=== PATIENT | female | born 1945 | race Caucasian/White ===

== ENCOUNTER 2016-12-06 11:07 | Emergency (ER) | payer OTHER ==
[~2016-12-06] VITALS: Ht 147.3 cm; Wt 85.7 kg
--- NOTE | 2016-12-06 11:48 | ED INFLUENZA/URI COMPLAINT ---
History of Present Illness General Chief Complaint: Upper Respiratory Sx/Fever Stated Complaint: URI Source: patient, family (DAUGHTER) Exam Limitations: no limitations Vital Signs & Intake/Output Vital Signs & Intake/Output Vital Signs Date Time Temp Pulse Resp B/P Pulse O2 O2 Flow FiO2 Ox Delivery Rate 12/06 1438 97.4 67 131/86 97 Room Air 12/06 1243 61 20 128/78 94 Room Air 12/06 1212 99 12/06 1148 93 Room Air 12/06 1128 97.2 65 28 117/79 92 Room Air Allergies Coded Allergies: Penicillins (Intermediate, HIVES 12/06/16) Reconcile Medications Azithromycin (Zithromax) 250 MG TABLET 1 DP PO AD bronchitis 2 the first day followed by 1 for days 2-5 Methylprednisolone. (Medrol) 4 MG TAB.DS.PK 1 DP PO AD bronchitis 6 on day 1 then reduce by one tablet daily until gone Triage Note: C/O SORE THROAT, CONGESTED COUGH X 4 DAYS. (PRODUCTIVE YELLOW SPUTUM). DENIES FEVER, WEAKNESS OR CHANGE OF APPETITE. PMH: CHF. Triage Nurses Notes Reviewed? yes Onset: Gradual Duration: day(s): (4), constant Timing: single episode today Severity: mild Severity Numbers: 4 Prior Episodes/Possible Cause: occassional episodes No Modifying Factors: none Associated Symptoms: cough, muscle aches, nasal congestion, nasal drainage HPI: This is a 71-year-old female with history of CHF, hypertension high cholesterol who presents with her daughter for evaluation complaining of a four-day history of a nonproductive cough, associated rhinorrhea and congestion. The patient's daughter reports multiple sick contacts at home with similar symptoms. She did not receive a flu vaccination this year. She quit smoking a partially 30 years ago, no history of asthma or COPD. She denies any shortness of breath chest pain leg swelling fever chills nausea vomiting or diarrhea. She has been using [id number] decongestions without improvement. There are no other modifying factors or associated symptoms otherwise. There is no sputum production no hemoptysis. Her daughter states the symptoms have improved since they had initially begun however given her history was CHF she wanted to ensure that she did not have pneumonia today. (BRAD SILVA,ADIEL) Past History Travel History Traveled to [place] past 21 day No Medical History Any Pertinent Medical History? see below for history Cardiovascular: CHF, hypertension Musculoskeletal: osteoarthritis Cancer(s): NONE Surgical History Surgical History: non-contributory Psychosocial History What is your primary language Upper Sorbian Tobacco Use: Quit >30 days ago ETOH Use: denies use Family History Hx Contributory? No (ADIEL VEE) Review of Systems Review of Systems Constitutional: Reports: see HPI. All Other Systems: Reviewed and Negative Comments Review of systems: See HPI, All other systems negative. Constitutional, no chills no fever, no malaise no weight loss HEENT: no sore throat congestion, no ear pain Cardiovascular: No chest pain , no palpitation , no orthopnea no ankle swelling Skin, no jaundice no rashes, no change in skin Respiratory: No dyspnea cough no sputum no hemoptysis GI: No nausea no vomiting, no diarrhea, no bloating/constipation : No dysuria Muscle skeletal: No joint pain, no joint swelling, no back pain Neurologic: No numbness no headache Psych: No stress Heme/endocrine: No bruising no bleeding Immunology: No lymphadenopathy (ADIEL VEE) Physical Exam Physical Exam General Appearance: well developed/nourished, alert, awake Ears, Nose, Throat: normal ENT inspection Comments: Well-developed well-nourished person in no acute distress Head/Face: Atraumatic, no maxillary/frontal sinus tenderness, no facial swelling Eyes: PERRL, EOMI, no conjunctival injection Ear:External auditory canal and Tympanic membranes clear Nose: atraumatic.Normal inspection: No bleeding, no septal hematoma Throat: Moist mucous membranes.Pharynx normal. No pharyngeal erythema/exudate seen. No stridor/drooling or assymetry. No swelling or edema. Neck: Supple, no lymphadenopathy, FROM Back: Nontender, no CVA tenderness. Full range of motion Cardiovascular: Regular rate and rhythms no murmurs rubs or gallops, normal JVP Respiratory: Chest nontender.There were no bony deformities, no asymmetry. No respiratory distress. Patient speaking in full complete sentences. Breath sounds clear to auscultation bilaterally: NO W/R/R Abdomen: Soft, nontender nondistended, no appreciable organomegaly. Normal bowel sounds. No rebound/guarding, No ascites. Extremity: No edema, full range of motion of extremities, normal and equal pulses bilaterally, 5 out of 5 strength noted to bilateral upper and lower extremities Neuro: Alert oriented x3, motor sensory normal, There were no obvious focal neurologic abnormalities. Skin: No appreciable rash on exposed skin, skin is warm and dry. Psych: Mood and affect is normal, memory and judgment is normal. Core Measures Severe Sepsis Present: No Septic Shock Present: No (BRAD SILVA,ADIEL) Progress Differential Diagnosis: influenza, otitis, pneumonia, pharyngitis, sinusitis, BRONCHITIS,COPD, CHF EXACERBATION Plan of Care: Orders Procedure Date/time Status Regular Diet 12/06 D Active BLOOD CULTURE 12/06 124 Active COMPREHENSIVE METABOLIC PANEL 12/06 1246 Complete CBC WITHOUT DIFFERENTIAL 12/06 124 Complete RAPID VIRAL INFLUENZA A 12/06 1143 Complete Laboratory Tests 12/06/16 1300: Anion Gap 15, Estimated GFR > 60, BUN/Creatinine Ratio 27.1 H, Glucose 147 H, Calcium 9.3, Total Bilirubin 0.8, AST 27, ALT 23, Alkaline Phosphatase 59, Total Protein 7.8, Albumin 4.4, Globulin 3.4, Albumin/Globulin Ratio 1.3, CBC w Diff NO MAN DIFF REQ, RBC 5.31, MCV 86.8, MCH 28.6, RDW 13.8, MPV 7.8, Gran % 74.5, Lymphocytes % 14.9 L, Monocytes % 9.8 H, Eosinophils % 0.4, Basophils % 0.4, Absolute Granulocytes 7.1 H, Absolute Lymphocytes 1.4, Absolute Monocytes 0.9 H, Absolute Eosinophils 0, Absolute Basophils 0, PUBS MCHC 33.0 Microbiology 12/06 1305 BLOOD: Blood Culture - RECD 12/06 1300 BLOOD: Blood Culture - RECD 12/06 1145 NASOPHARYN: Influenza Virus A & B Rapid Smear - COMP Patient speaking in full complete sentences labs ordered old records reviewed, case discussed with Dr. Diaz 12/06/2016 1:01:17 PM discussed with the patient and her daughter at length all her x-ray results. Need for CAT scan and labs ordered which in agreement with- AZITHRO 500mg IV, Solu-Medrol 125mg IV ordered 12/06/2016 2:06:32 PM I discussed with the patient and her daughter her CT findings,, they will follow up with her primary care physician Dr. Whitaker on this week prescription for azithromycin and prednisone provided patient is not hypoxic resting comfortably they feel comfortable with discharge answered all her questions cleared for discharge (BRAD SILVA,ADIEL) Diagnostic Imaging: Viewed by Me: Radiology Read. Discussed w/RAD: Radiology Read. Radiology Impression: PATIENT: CHINO MCCORD PRESENT AGE: 71 PATIENT ACCOUNT NO: [id number] : 43 LOCATION: [facility], [place] ORDERING PHYSICIAN: ADIEL SILVA SERVICE DATE: 12/06/161143 EXAM TYPE: RAD - XRY-CHEST XRAY, PA AND LATERAL EXAMINATION: XR CHEST CLINICAL INFORMATION: Cough. Evaluate for pneumonia. COMPARISON: None TECHNIQUE: Frontal and lateral views of the chest. FINDINGS: The cardiomediastinal silhouette is enlarged. Ectasia and tortuosity of the ascending and descending aorta is seen. Calcification of the aortic arch is noted. Lungs bilaterally are symmetrically mildly hyperinflated with flattening of the hemidiaphragms and increase in AP diameter of the chest, suggesting obstructive lung disease. There is fullness of the right pulmonary hilum with ill-defined opacities seen extending along the medial right heart border into the right lower lung. Findings may be related to a hilar mass with postobstructive changes in the right lower lung or subtle pneumonia with reactive adenopathy in the right hilum. The patient is slightly rotated on the film and the right hilar fullness may be artifactually accentuated by this patient positioning. No effusion or pneumothorax is seen. Osteopenia with multilevel mild vertebral spondylosis in the mid and lower thoracic spine are noted. IMPRESSION: 1. Suspect right hilar adenopathy with associated postobstructive changes in the medial right lung base versus subtle pneumonia. Consider further assess with CT scan of the chest. 2. Findings of obstructive lung disease. 3. Ectatic and tortuous aorta. DICTATED BY: EMEKA VALE MD DATE/TIME DICTATED:12/06/161224 MAGNETIC RESONANCE TECHNOLOGIST:ADARSH DATE/ TIME TRANSCRIBED:12/06/161224 CONFIDENTIAL, DO NOT COPY WITHOUT APPROPRIATE AUTHORIZATION. <Electronically signed in Other Vendor System> SIGNED BY: EMEKA VALE MD 12/06/16 1235, PATIENT: CHINO MCCORD PRESENT AGE: 71 PATIENT ACCOUNT NO: [id number] : 43 LOCATION: [facility], [place] ORDERING PHYSICIAN: ADIEL SILVA SERVICE DATE: 12/06/16-1246 EXAM TYPE: CAT - CT CHEST WO IV CONTRAST EXAMINATION: CT CHEST WITHOUT CONTRAST CLINICAL INFORMATION: Dyspnea and cough. COMPARISON: Chest 12/06/2016. TECHNIQUE: Multidetector volumetric CT imaging of the chest was done. Axial MIP volume rendering provided. Sagittal and coronal reformatted images were obtained. DLP: 562 mGy-cm FINDINGS: LUNGS: Both lungs are well-expanded angulated acute pneumonic process. Especially there is no consolidation in the right middle lobe except for minimal medial segment. There are no pulmonary nodules or mass seen. MEDIASTINUM: The heart size is mildly enlarged with coronary artery calcification. There is moderate ectasia of ascending aorta simulating right hilar lesion. Otherwise the great vessels are normal caliber. There is mild ectasia of distal thoracoabdominal aorta as well.. Central trachea and the bronchi widely patent. The thyroid lobes a slightly enlarged with symmetrical. No abnormal size mediastinal or hilar lymphadenopathy seen. There is no right hilar mass seen. Abnormality seen on chest x-ray is most likely is a normal right hilum PLEURA: There is no pleural effusion. No pleural mass or thickening. AXILLA: Bilateral axilla and the chest wall appears unremarkable. UPPER ABDOMEN: Visualized liver, spleen, pancreas and bilateral adrenal glands are unremarkable. OSSEOUS STRUCTURES: There are degenerative disc changes T9-T10 disc level with moderate spondylosis. There is mild spondylosis seen throughout the mid and lower dorsal spine as well. IMPRESSION: There is no evidence of right hilar or parahilar consolidation. Minimal atelectatic changes are seen in the medial segment right middle lobe. An ascending and distal descending thoracic aorta is noted. No aneurysmal dilatation seen. DICTATED BY: RELL HUBER MD DATE/TIME DICTATED:12/06/161343 MAGNETIC RESONANCE TECHNOLOGIST:ADARSH DATE/TIME TRANSCRIBED:12/06/161343 CONFIDENTIAL, DO NOT COPY WITHOUT APPROPRIATE AUTHORIZATION. <Electronically signed in Other Vendor System> SIGNED BY: RELL HUBER MD 12/06/16 1402 Initial ED EKG: none (BRAD SILVA,ADIEL) Departure Departure Disposition: HOME OR SELF CARE Condition: Stable Clinical Impression Primary Impression: Bronchitis Referrals: YOSSI MARIA MD (PCP/Family) Additional Instructions: FOLLOW UP WITH YOUR PMD DR MARIA TOMORROW. MEDROL DOSE SONDRA AND AZITHROMYCIN DIRECTED. RETURN AT ANYTIME SOONER IF YOUR SYMPTOMS WORSEN OR YOU HAVE ANY OTHER CONCERN These prescriptions were sent to your pharmacy Departure Forms: Customer Survey General Discharge Information Prescriptions: Current Visit Scripts Methylprednisolone. (Medrol) 1 DP PO AD #1 DP 6 on day 1 then reduce by one tablet daily until gone Azithromycin (Zithromax) 1 DP PO AD #6 TAB 2 the first day followed by 1 for days 2-5 (BRAD SILVA,ADIEL) PA/HOGSHEAD BUILDER Co-Sign Statement Statement: ED Attending supervision documentation- [X] I saw and evaluated the patient. I have also reviewed all the pertinent lab results and diagnostic results. I agree with the findings and the plan of care as documented in the PA's/HOGSHEAD BUILDER's documentation. [X] I have reviewed the ED Record and agree with the PA's/HOGSHEAD BUILDER's documentation. [] Additions or exceptions (if any) to the PAs/HOGSHEAD BUILDER's note and plan are summarized below: [] (MILLICENT GAUTHIER,JACK Foster)
--- NOTE | 2016-12-06 12:35 | RADIOLOGY REPORT ---
EXAMINATION: XR CHEST CLINICAL INFORMATION: Cough. Evaluate for pneumonia. COMPARISON: None TECHNIQUE: Frontal and lateral views of the chest. FINDINGS: The cardiomediastinal silhouette is enlarged. Ectasia and tortuosity of the ascending and descending aorta is seen. Calcification of the aortic arch is noted. Lungs bilaterally are symmetrically mildly hyperinflated with flattening of the hemidiaphragms and increase in AP diameter of the chest, suggesting obstructive lung disease. There is fullness of the right pulmonary hilum with ill-defined opacities seen extending along the medial right heart border into the right lower lung. Findings may be related to a hilar mass with postobstructive changes in the right lower lung or subtle pneumonia with reactive adenopathy in the right hilum. The patient is slightly rotated on the film and the right hilar fullness may be artifactually accentuated by this patient positioning. No effusion or pneumothorax is seen. Osteopenia with multilevel mild vertebral spondylosis in the mid and lower thoracic spine are noted. IMPRESSION: 1. Suspect right hilar adenopathy with associated postobstructive changes in the medial right lung base versus subtle pneumonia. Consider further assess with CT scan of the chest. 2. Findings of obstructive lung disease. 3. Ectatic and tortuous aorta.
[2016-12-06 13:20] LABS: ABSOLUTE BASOPHIL COUNT 0 /CUMM (0.0-0.2); ABSOLUTE EOSINOPHIL COUNT 0 /CUMM (0.0-0.7); ABSOLUTE GRANULOCYTE CT 7.1 /CUMM (1.4-6.5); ABSOLUTE LYMPH COUNT 1.4 /CUMM (1.2-3.4); ABSOLUTE MONOCYTE COUNT 0.9 /CUMM (0.10-0.60); BASOPHIL % 0.4 % (0.0-2.0); EOSINOPHIL % 0.4 % (0-5); GRANULOCYTE % 74.5 % (42.2-75.2); HEMATOCRIT 46.1 % (37-47); MEAN CORPUSCULAR HGB 28.6 PG (27.0-31.0); MEAN CORPUSCULAR VOLUME 86.8 FL (81.0-99.0); MEAN PLATELET VOLUME 7.8 FL (7.4-10.4); PLATELET COUNT 302 /CUMM (130-400); RBC DISTRIBUTION WIDTH 13.8 % (11.5-14.5); RED BLOOD CELL CT 5.31 /CUMM (4.20-5.40); WHITE BLOOD CELL COUNT 9.6 /CUMM (4.8-10.8)
--- NOTE | 2016-12-06 14:02 | CT SCAN REPORT ---
EXAMINATION: CT CHEST WITHOUT CONTRAST CLINICAL INFORMATION: Dyspnea and cough. COMPARISON: Chest 12/06/2016. TECHNIQUE: Multidetector volumetric CT imaging of the chest was done. Axial MIP volume rendering provided. Sagittal and coronal reformatted images were obtained. DLP: 562 mGy-cm FINDINGS: LUNGS: Both lungs are well-expanded angulated acute pneumonic process. Especially there is no consolidation in the right middle lobe except for minimal medial segment. There are no pulmonary nodules or mass seen. MEDIASTINUM: The heart size is mildly enlarged with coronary artery calcification. There is moderate ectasia of ascending aorta simulating right hilar lesion. Otherwise the great vessels are normal caliber. There is mild ectasia of distal thoracoabdominal aorta as well.. Central trachea and the bronchi widely patent. The thyroid lobes a slightly enlarged with symmetrical. No abnormal size mediastinal or hilar lymphadenopathy seen. There is no right hilar mass seen. Abnormality seen on chest x-ray is most likely is a normal right hilum PLEURA: There is no pleural effusion. No pleural mass or thickening. AXILLA: Bilateral axilla and the chest wall appears unremarkable. UPPER ABDOMEN: Visualized liver, spleen, pancreas and bilateral adrenal glands are unremarkable. OSSEOUS STRUCTURES: There are degenerative disc changes T9-T10 disc level with moderate spondylosis. There is mild spondylosis seen throughout the mid and lower dorsal spine as well. IMPRESSION: There is no evidence of right hilar or parahilar consolidation. Minimal atelectatic changes are seen in the medial segment right middle lobe. An ascending and distal descending thoracic aorta is noted. No aneurysmal dilatation seen.
[2016-12-06] MEDS ORDERED: MEDROL4 M2 PO (14:08)
[2016-12-06] MEDS ORDERED: ZITHROMAX250 M2 PO (14:08)
[2016-12-06 14:38] VITALS: BP 131/86
== END 2016-12-06 15:07 ==
LOC: ERH 11:07
PROVIDERS: Physician Assistant Medical
DX: J40 Bronchitis, not specified as acute or chronic (principal); Z87.891 Personal history of nicotine dependence
CPT/HCPCS: 1263; 87040; 87804; 87804-59; 96374; 96375; J2930